=== PATIENT | female | born 1990 | race Caucasian/White ===

== ENCOUNTER → 2017-11-16 14:46 | Outpatient (CLI) | payer OTHER, SELFPAY ==
--- NOTE | 2017-11-16 14:48 | DI.RAD.S_ITS ---
PROCEDURE: XR CHEST 2V INDICATIONS: rib pain/cough TECHNIQUE: 2 views of the chest were acquired. COMPARISON: [facility], , CHEST 2 VIEW, 03/25/2015, 11:59. FINDINGS: Surgical changes and devices: None. Lungs and pleura: No pleural effusions or pneumothorax. Lungs are clear. Mediastinum: Mediastinal contours are normal. Heart size is normal. Bones and chest wall: No suspicious bony abnormalities. Soft tissues appear unremarkable. IMPRESSION: Pectus excavatum chest wall morphology, no source of cough is found. Dictated by: Puma Muniz M.D. on 11/16/2017 at 15:23 Approved by: Puma Muniz M.D. on 11/16/2017 at 15:23
--- NOTE | 2017-11-16 14:48 | DI.RAD.S_ITS ---
PROCEDURE: XR RIBS RT 2V INDICATIONS: rib pain TECHNIQUE: 2 views of the right ribs were acquired. COMPARISON: None. FINDINGS: Surgical changes and devices: None. Bones and chest wall: No fractures or dislocations. No suspicious bony lesions. Overlying soft tissues appear unremarkable. Lungs and pleura: The visualized lung appears clear. No pleural effusions or pneumothorax are visible. IMPRESSION: No trauma found, no pneumothorax seen. Dictated by: Puma Muniz M.D. on 11/16/2017 at 15:23 Approved by: Puma Muniz M.D. on 11/16/2017 at 15:24
== END ==
PROVIDERS: Family Provider Family Medicine; PCP Family Medicine; Visit Provider Internal Medicine
DX: R07.81 Pleurodynia (principal); R05 Cough
CPT/HCPCS: 71046; 71100